=== PATIENT | female | born 1945 | race Caucasian/White ===

== ENCOUNTER → 2017-01-31 | Outpatient (CLI) | payer OTHER ==
[~2017-01-31] MED LIST: ALENDRONATE SOD70 M1 PO; ASPIRIN325 MG PO; COUMADIN10 M1 PO; ENOXAPARIN 150 MG/ML SC; KEFLEX500 MG PO; LEVAQUIN750 MG PO; LISINOPRIL/HCTZ1 TA3 PO; NAPROSYN375 MG PO; OMEPRAZOLE D/R20 MG PO; OSCAL,OYSTER S500 MG PO; PRAVACHOL40 MG PO; TRILIPIX45 M1 PO; ULTRAM50 MG PO; VITAMIN D5000 I2 PO; VITAMIN D50000 I3 PO
== END | disposition home or self-care (01) ==
LOC: RAD 16:53
DX: M19.041 Primary osteoarthritis, right hand (principal); M65.311 Trigger thumb, right thumb; M25.441 Effusion, right hand

== ENCOUNTER → 2017-09-18 | Outpatient (CLI) | payer OTHER | END | disposition home or self-care (01) | LOC: MAMMO 07:57 | DX: Z12.31 Encounter for screening mammogram for malignant neoplasm of breast (principal) ==

== ENCOUNTER → 2018-09-24 | Outpatient (CLI) | payer OTHER ==
[~2018-09-24] MED LIST changes: +CALCIUM500 M1 PO; +FISH OIL 1,0001 EAC4 PO; +PRAVASTATIN SOD10 MG PO; +XARELTO1 EACH PO; +ZESTRIL10 MG PO
== END | disposition home or self-care (01) ==
LOC: MAMMO 02:40
DX: Z12.31 Encounter for screening mammogram for malignant neoplasm of breast (principal)

== ENCOUNTER → 2019-02-04 | Outpatient (CLI) | payer OTHER | END | disposition home or self-care (01) | LOC: RESCLI 01:04 | DX: K21.9 Gastro-esophageal reflux disease without esophagitis (principal); I26.99 Other pulmonary embolism without acute cor pulmonale; E78.5 Hyperlipidemia, unspecified; I10 Essential (primary) hypertension; E66.9 Obesity, unspecified; Z79.899 Other long term (current) drug therapy ==

== ENCOUNTER → 2019-03-11 | Outpatient (CLI) | payer OTHER | END | disposition home or self-care (01) | LOC: RESCLI 08:13 | DX: I26.99 Other pulmonary embolism without acute cor pulmonale (principal); I10 Essential (primary) hypertension; E55.9 Vitamin D deficiency, unspecified; K21.9 Gastro-esophageal reflux disease without esophagitis; E78.5 Hyperlipidemia, unspecified ==

== ENCOUNTER → 2019-05-08 | Day surgery (SDC) | payer OTHER ==
[~2019-05-08] VITALS: Ht 160 cm; Wt 90.7 kg
--- NOTE | ~2019-05-08 | O ---
[place], [place] OPERATIVE NOTE NAME: MAGGY LINCOLN UNIT #: [id number] ROOM: DOCTOR: ABIGAIL GREEN MD BIRTHDATE: [birth year] DOS: 05/08/2019 GASTROENDOSCOPIC REPORT INDICATION: This is a 74-year-old patient who has presented with chief complaint of colonic screening concern, and undergoing investigation. ALLERGIES: No known medication. FAMILY HISTORY: Noncontributory. PAST SURGICAL HISTORY: Cholecystectomy, appendectomy. PAST MEDICAL HISTORY: PE, hypertension, and hypercholesterolemia. SOCIAL HISTORY: Nonsmoker, nonalcohol consumer. PROCEDURE: Today's procedure part of investigation is colonoscopy. PREMEDICATION: Propofol. SCOPE: Olympus forward-viewing colonoscope 10L video. REPORT: After putting the patient in left lateral position and application of lubricant to the scope, the scope was introduced. Thereafter, under direct visualization, advanced through the length of colon without difficulty. Base of the cecum explored. Appendiceal orifice identified, ileocecal valve was defined. Air was gradually withdrawn from ascending, transverse, and descending colon. Diverticulosis was noticed. The patient extubated, tolerated the procedure well. IMPRESSION: Diverticulosis, mostly concentrated in sigmoid colon. No other pathological finding. PLAN: Resumption of feeding and resumption of Xarelto and clinical reassessment as outpatient. Thank you very much indeed for your kind referral. [place], [place] OPERATIVE NOTE NAME: MAGGY LINCOLN UNIT #: [id number] ROOM: DOCTOR: ABIGAIL GREEN MD BIRTHDATE: [birth year] ABIGAIL GREEN MD CM:OPRECORD:OPERATIVE NOTE 1318 ABIGAIL GREEN MD 05/08/19 1335 interface
[2019-05-08 11:51] VITALS: BP 118/67
[2019-05-08 12:59] VITALS: BP 106/54
[2019-05-08 13:15] VITALS: BP 120/66
[2019-05-08 13:29] VITALS: BP 120/66
== END | disposition home or self-care (01) ==
LOC: SDC 05-04 12:30
DX: Z12.11 Encounter for screening for malignant neoplasm of colon (principal); K57.30 Diverticulosis of large intestine without perforation or abscess without bleeding; K21.9 Gastro-esophageal reflux disease without esophagitis; I10 Essential (primary) hypertension; E78.00 Pure hypercholesterolemia, unspecified; E66.9 Obesity, unspecified; Z68.35 Body mass index [BMI] 35.0-35.9, adult; Z98.890 Other specified postprocedural states; Z79.899 Other long term (current) drug therapy; Z86.010 Personal history of colon polyps; Z90.49 Acquired absence of other specified parts of digestive tract; Z80.8 Family history of malignant neoplasm of other organs or systems; Z82.49 Family history of ischemic heart disease and other diseases of the circulatory system
CPT/HCPCS: 00812; G0105

== ENCOUNTER → 2019-05-20 | Outpatient (CLI) | payer OTHER | END | disposition home or self-care (01) | LOC: RESCLI 01:14 | DX: I26.99 Other pulmonary embolism without acute cor pulmonale (principal); I10 Essential (primary) hypertension; K21.9 Gastro-esophageal reflux disease without esophagitis; E55.9 Vitamin D deficiency, unspecified; E78.5 Hyperlipidemia, unspecified; Z79.899 Other long term (current) drug therapy ==

== ENCOUNTER → 2019-07-21 | Outpatient (CLI) | payer OTHER ==
[2019-07-21 07:23] LABS: BASO % 0.7 % (0.0-1.0); EOS # 0.2 10*3/uL (0.0-0.4); EOS % 3.1 % (1.0-4.0); HEMOGLOBIN 12.6 g/dl (12.0-16.0); LYMPH # 1.9 10*3/uL (1.3-4.4); LYMPH % 33.3 % (27.0-41.0); MEAN CELL VOLUME 95.7 fl (81.0-99.0); MEAN CORPUSCULAR HGB 30.1 pg (27.0-31.0); MEAN CORPUSCULAR HGB CONC 31.5 g/dl (33.0-37.0); MEAN PLATELET VOLUME 9.7 fl (9.6-12.3); MONO # 0.6 10*3/uL (0.1-1.0); MONO % 10.4 % (3.0-9.0); NEUT % 52.3 % (47.0-73.0); PLATELET COUNT AUTOMATED 177 10*3/uL (130-400); RED BLOOD COUNT 4.18 10*6/uL (4.10-5.10); RED CELL DISTRI WIDTH 12.7 % (0-14.5); WHITE BLOOD COUNT 5.8 10*3/uL (4.8-10.8)
[2019-07-21 07:57] LABS: ALBUMIN 3.3 gm/dl (3.1-4.5); ALKALINE PHOSPHATASE 59 U/L (45-117); BUN 14 mg/dl (7-24); CHLORIDE 107 mmol/L (98-107); CHOLESTEROL 216 mg/dL (<200); CREATININE 0.81 mg/dL (0.55-1.02); HDL CHOLESTEROL 48 mg/dl (40-60); LDL CHOLESTEROL 140 mg/dL (9-159); POTASSIUM 3.8 mmol/L (3.5-5.1); SGOT/AST 19 IU/L (3-35); SGPT/ALT 19 U/L (12-78); SODIUM 142 mmol/L (136-145); TOTAL PROTEIN 7.2 gm/dL (6.4-8.2); TRIGLYCERIDES 138 mg/dl (<150); VLDL CHOLESTEROL 28 mg/dL (6-40)
[2019-07-23 16:10] LABS: ANTI-THROMBIN III ACTIVITY 137 % (75-135); PROTEIN S-FUNCTIONAL 164525 150 % (63-140)
== END | disposition home or self-care (01) ==
LOC: LAB 00:59
PROVIDERS: Internal Medicine Critical Care Medicine; Nurse Practitioner Primary Care
DX: I26.99 Other pulmonary embolism without acute cor pulmonale (principal); I10 Essential (primary) hypertension; E55.9 Vitamin D deficiency, unspecified

== ENCOUNTER → 2019-10-01 | Outpatient (CLI) | payer OTHER | END | disposition home or self-care (01) | LOC: MAMMO 09-30 08:30 | DX: Z12.31 Encounter for screening mammogram for malignant neoplasm of breast (principal) ==

== ENCOUNTER → 2020-06-10 | Outpatient (CLI) | payer OTHER | END | disposition home or self-care (01) | LOC: COVID19 08:26 | PROVIDERS: ATTEND Surgery | DX: Z01.812 Encounter for preprocedural laboratory examination (principal); Z20.828 Contact with and (suspected) exposure to other viral communicable diseases ==

== ENCOUNTER → 2020-06-20 | Day surgery (SDC) | payer OTHER ==
[~2020-06-20] VITALS: Ht 160 cm; Wt 83.5 kg
[2020-06-20 08:25] VITALS: BP 126/50
[2020-06-20 10:41] VITALS: BP 96/51
[2020-06-20 10:55] VITALS: BP 105/49
[2020-06-20 11:11] VITALS: BP 105/49
== END ==
LOC: SDC 06-15 08:45
PROVIDERS: ATTEND Surgery
DX: Z12.11 Encounter for screening for malignant neoplasm of colon (principal); K57.30 Diverticulosis of large intestine without perforation or abscess without bleeding; I10 Essential (primary) hypertension; K21.9 Gastro-esophageal reflux disease without esophagitis; E78.00 Pure hypercholesterolemia, unspecified; Z86.711 Personal history of pulmonary embolism; Z90.49 Acquired absence of other specified parts of digestive tract; M19.90 Unspecified osteoarthritis, unspecified site; Z98.890 Other specified postprocedural states; Z86.718 Personal history of other venous thrombosis and embolism

== ENCOUNTER → 2020-08-10 | Outpatient (CLI) | payer OTHER | END | disposition home or self-care (01) | LOC: COVID19 08:58 | PROVIDERS: ATTEND Nurse Practitioner Primary Care | DX: G44.009 Cluster headache syndrome, unspecified, not intractable (principal); R09.89 Other specified symptoms and signs involving the circulatory and respiratory systems; Z20.822 Contact with and (suspected) exposure to COVID-19 ==

== ENCOUNTER 2020-10-05 05:41 | Emergency (ER) | payer OTHER ==
[~2020-10-05] VITALS: Ht 162.5 cm; Wt 77.1 kg
[2020-10-05 06:08] LABS: BASO # 0.1 10*3/uL (0.0-0.1); BASO % 1.2 % (0.0-1.0); EOS # 0.2 10*3/uL (0.0-0.4); EOS % 3.2 % (1.0-4.0); HEMATOCRIT 37.4 % (37.0-47.0); LYMPH # 1.5 10*3/uL (1.3-4.4); LYMPH % 21.4 % (27.0-41.0); MEAN CORPUSCULAR HGB 30.3 pg (27.0-31.0); MEAN CORPUSCULAR HGB CONC 32.6 g/dl (33.0-37.0); MEAN PLATELET VOLUME 9.8 fl (9.6-12.3); MONO # 0.7 10*3/uL (0.1-1.0); MONO % 10.5 % (3.0-9.0); NEUT # 4.4 10*3/uL (2.3-7.9); NEUT % 63.4 % (47.0-73.0); PLATELET COUNT AUTOMATED 171 10*3/uL (130-400); RED BLOOD COUNT 4.02 10*6/uL (4.10-5.10); RED CELL DISTRI WIDTH 13.2 % (0-14.5); WHITE BLOOD COUNT 6.9 10*3/uL (4.8-10.8)
[2020-10-05 06:38] LABS: ALBUMIN 3.3 gm/dl (3.1-4.5); ALKALINE PHOSPHATASE 56 U/L (45-117); BUN 13 mg/dl (7-24); CHLORIDE 107 mmol/L (98-107); CREATININE 0.84 mg/dL (0.55-1.02); POTASSIUM 3.5 mmol/L (3.5-5.1); SGPT/ALT 19 U/L (12-78); SODIUM 139 mmol/L (136-145); TOTAL PROTEIN 6.8 gm/dL (6.4-8.2)
[2020-10-05 06:53] LABS: SGOT/AST 20 IU/L (3-35)
[2020-10-05 06:54] LABS: TROPONIN I < 0.015 ng/ml (<0.045)
[2020-10-05 07:54] VITALS: BP 130/59
== END 2020-10-05 08:00 | disposition home or self-care (01) ==
LOC: ED 05:41
PROVIDERS: Internal Medicine
DX: N64.4 Mastodynia (principal); F41.9 Anxiety disorder, unspecified; I10 Essential (primary) hypertension; K21.9 Gastro-esophageal reflux disease without esophagitis; E78.00 Pure hypercholesterolemia, unspecified; Z79.899 Other long term (current) drug therapy; Z90.49 Acquired absence of other specified parts of digestive tract; Z98.890 Other specified postprocedural states

== ENCOUNTER → 2020-10-06 | Outpatient (CLI) | payer OTHER | END | disposition home or self-care (01) | LOC: MAMMO 02:27 | PROVIDERS: ATTEND Nurse Practitioner Primary Care | DX: Z12.31 Encounter for screening mammogram for malignant neoplasm of breast (principal) ==

== ENCOUNTER → 2021-01-05 | Outpatient (CLI) | payer OTHER | END | disposition home or self-care (01) | LOC: RAD 07:54 | PROVIDERS: ATTEND Nurse Practitioner Primary Care | DX: M25.511 Pain in right shoulder (principal); G89.29 Other chronic pain ==

== ENCOUNTER → 2021-01-09 | Outpatient (CLI) | payer OTHER | LOC: MRI 00:32 | PROVIDERS: ATTEND Nurse Practitioner Primary Care | DX: G93.9 Disorder of brain, unspecified (principal); R68.89 Other general symptoms and signs; R41.3 Other amnesia; Z81.8 Family history of other mental and behavioral disorders ==

== ENCOUNTER → 2021-10-25 | Outpatient (CLI) | payer OTHER | END | disposition home or self-care (01) | LOC: MAMMO 02:53 | PROVIDERS: ATTEND Nurse Practitioner Primary Care | DX: Z12.31 Encounter for screening mammogram for malignant neoplasm of breast (principal); N63.11 Unspecified lump in the right breast, upper outer quadrant; N63.21 Unspecified lump in the left breast, upper outer quadrant ==

== ENCOUNTER → 2021-11-27 | Outpatient (CLI) | payer OTHER ==
[2021-11-27 10:21] LABS: BASO # 0.1 10*3/uL (0.0-0.1); EOS # 0.2 10*3/uL (0.0-0.4); EOS % 4.4 % (1.0-4.0); HEMATOCRIT 41.1 % (37.0-47.0); LYMPH # 1.6 10*3/uL (1.3-4.4); LYMPH % 30.7 % (27.0-41.0); MEAN CELL VOLUME 91.9 fl (81.0-99.0); MEAN CORPUSCULAR HGB CONC 32.6 g/dl (33.0-37.0); MEAN PLATELET VOLUME 9.6 fl (9.6-12.3); MONO # 0.7 10*3/uL (0.1-1.0); MONO % 12.5 % (3.0-9.0); NEUT # 2.7 10*3/uL (2.3-7.9); NEUT % 51.4 % (47.0-73.0); PLATELET COUNT AUTOMATED 206 10*3/uL (130-400); RED BLOOD COUNT 4.47 10*6/uL (4.10-5.10); RED CELL DISTRI WIDTH 12.8 % (0-14.5); WHITE BLOOD COUNT 5.2 10*3/uL (4.8-10.8)
[2021-11-27 10:22] LABS: BILIRUBIN Negative (Negative); BLOOD Negative (Negative); CLARITY Clear (Clear); COLOR Yellow (Yellow); GLUCOSE Negative (Negative); KETONE Negative (Negative); LEUKO ESTERASE 2+ (Negative); NITRITE Negative (Negative); SPECIFIC GRAVITY 1.015 (1.001-1.030); UROBILINOGEN 0.2 E.U./dl (0.0-1.0)
[2021-11-27 10:30] LABS: BACTERIA 1+; MUCOUS 1+; WBC 16-20 wbc/hpf (0-5)
[2021-11-27 11:05] LABS: ALKALINE PHOSPHATASE 62 U/L (45-117); BUN 12 mg/dl (7-24); CHLORIDE 105 mmol/L (98-107); CHOLESTEROL 227 mg/dL (<200); LDL CHOLESTEROL 135 mg/dL (9-159); POTASSIUM 3.8 mmol/L (3.5-5.1); SGOT/AST 27 IU/L (3-35); SGPT/ALT 24 U/L (12-78); SODIUM 137 mmol/L (136-145); TOTAL PROTEIN 7.6 gm/dL (6.4-8.2); TRIGLYCERIDES 83 mg/dl (<150)
== END | disposition home or self-care (01) ==
LOC: LAB 09:52 → RAD 14:00
PROVIDERS: ATTEND Nurse Practitioner Primary Care
DX: M85.851 Other specified disorders of bone density and structure, right thigh (principal); I10 Essential (primary) hypertension; R41.3 Other amnesia; Z78.0 Asymptomatic menopausal state

== ENCOUNTER → 2022-01-03 | Outpatient (CLI) | payer OTHER | END | disposition home or self-care (01) | LOC: RAD 10:41 | PROVIDERS: ATTEND Family Medicine | DX: M16.12 Unilateral primary osteoarthritis, left hip (principal) ==

== ENCOUNTER → 2022-10-29 | Outpatient (CLI) | payer OTHER | END | disposition home or self-care (01) | LOC: MAMMO 09:00 | PROVIDERS: ATTEND Internal Medicine | DX: Z12.31 Encounter for screening mammogram for malignant neoplasm of breast (principal); N63.11 Unspecified lump in the right breast, upper outer quadrant; N63.21 Unspecified lump in the left breast, upper outer quadrant; N64.9 Disorder of breast, unspecified ==

== ENCOUNTER → 2023-08-02 | Outpatient (CLI) | payer MEDICARE | END | disposition home or self-care (01) | LOC: LAB 12:05 | PROVIDERS: ATTEND Internal Medicine | DX: R41.3 Other amnesia (principal) ==

== ENCOUNTER 2023-10-08 10:38 | Emergency (ER) | payer MEDICARE ==
[~2023-10-08] VITALS: Ht 160 cm; Wt 86.2 kg
[2023-10-08 10:44] VITALS: BP 149/77
[2023-10-08] MEDS ORDERED: HYDROCODONE-AC1 EAC1 PO (12:55)
== END 2023-10-08 13:02 | disposition home or self-care (01) ==
LOC: ED 10:38
DX: S30.0XXA Contusion of lower back and pelvis, initial encounter (principal); I10 Essential (primary) hypertension; K21.9 Gastro-esophageal reflux disease without esophagitis; E78.00 Pure hypercholesterolemia, unspecified; Z86.718 Personal history of other venous thrombosis and embolism; Z90.49 Acquired absence of other specified parts of digestive tract; Z90.89 Acquired absence of other organs; Z98.890 Other specified postprocedural states; W01.10XA Fall on same level from slipping, tripping and stumbling with subsequent striking against unspecified object, initial encounter; Y93.89 Activity, other specified; Y92.89 Other specified places as the place of occurrence of the external cause; Y99.8 Other external cause status

== ENCOUNTER 2023-12-20 17:01 | Emergency (ER) | payer MEDICARE ==
[~2023-12-20] VITALS: Ht 160 cm; Wt 68.0 kg
[~2023-12-20 17:01] MED LIST changes: +HYDROCODONE-AC1 EAC1 PO
[2023-12-20 17:23] VITALS: BP 134/61
[2023-12-20] MEDS ORDERED: Amoxicillin/Clavulanate Pota 875 MG TAB PO ONE (17:30)
[2023-12-20] MEDS ORDERED: AMOX-CLAV 875-1 EACH PO (17:32)
== END 2023-12-20 17:45 | disposition home or self-care (01) ==
LOC: ED 17:01
DX: S51.851A Open bite of right forearm, initial encounter (principal); I10 Essential (primary) hypertension; K21.9 Gastro-esophageal reflux disease without esophagitis; E78.00 Pure hypercholesterolemia, unspecified; Z86.718 Personal history of other venous thrombosis and embolism; Z90.49 Acquired absence of other specified parts of digestive tract; Z90.89 Acquired absence of other organs; Z98.890 Other specified postprocedural states; W55.01XA Bitten by cat, initial encounter; Y93.89 Activity, other specified; Y92.89 Other specified places as the place of occurrence of the external cause; Y99.8 Other external cause status

== ENCOUNTER → 2024-02-11 | Outpatient (CLI) | payer MEDICARE ==
[~2024-02-11] MED LIST changes: +AMOX-CLAV 875-1 EACH PO; +GADOTERATE MEGLUMINE 10 MMOL/20 ML VIAL IV ONE
== END | disposition home or self-care (01) ==
LOC: MRI 01:00
PROVIDERS: ATTEND Internal Medicine
DX: I67.89 Other cerebrovascular disease (principal); R41.3 Other amnesia; I10 Essential (primary) hypertension

== ENCOUNTER → 2024-05-18 | Outpatient (CLI) | payer MEDICARE ==
[~2024-05-18] MED LIST changes: -GADOTERATE MEGLUMINE 10 MMOL/20 ML VIAL IV ONE
== END | disposition home or self-care (01) ==
LOC: RAD 01:50
PROVIDERS: ATTEND Internal Medicine
DX: Z12.31 Encounter for screening mammogram for malignant neoplasm of breast (principal); M85.88 Other specified disorders of bone density and structure, other site; Z78.0 Asymptomatic menopausal state